=== PATIENT | female | born 1935 | race Caucasian/White ===

== ENCOUNTER 2022-04-27 15:52 | Inpatient (IN) | payer OTHER ==
[~2022-04-27] VITALS: Ht 162.6 cm; Wt 112.9 kg
[2022-04-27 15:55] VITALS: BP_SYST 124
[2022-04-27] MEDS ORDERED: VANCOMYCIN HCL 1,000 MG in NS 250 ML IV ONE (16:00)
[2022-04-27] MEDS ORDERED: PIPERACILLIN/TAZO 3.375 GM in NS 50 ML IV ONE (16:00)
--- NOTE | 2022-04-27 16:00 | NUR ---
Placed in room 7 . Placed on potline monitor, blood pressure machine and pulse oximeter. To gown for exam. Side rails up. Report given to MANUEL STEINER.
[2022-04-27] MEDS ORDERED: NACL 0.9% 1,000 ML IV ONE (16:15)
[2022-04-27] MEDS ORDERED: LOVA40TA75 PO (16:17)
[2022-04-27] MEDS ORDERED: GLIM1TAB PO (16:17)
[2022-04-27] MEDS ORDERED: ASCO500T20 PO (16:17)
[2022-04-27] MEDS ORDERED: ASPI-1155 PO (16:17)
[2022-04-27] MEDS ORDERED: CARV12.548 PO (16:17)
[2022-04-27] MEDS ORDERED: CALC-823 PO (16:17)
[2022-04-27] MEDS ORDERED: OMEG1CAP PO (16:17)
[2022-04-27] MEDS ORDERED: MULT-1089 PO (16:17)
[2022-04-27] MEDS ORDERED: SPIR25TA PO (16:17)
[2022-04-27] MEDS ORDERED: IRBE150T48 PO (16:17)
--- NOTE | 2022-04-27 16:17 | NUR ---
Medication reconciliation completed with information provided by PATIENT. Any prior medication reconciliation on file was reviewed and corrected.
[2022-04-27 16:40] LABS: BASOPHILS # (AUTO) 0.1 K/uL (0.0-0.2); BASOPHILS % (AUTO) 0.5 % (0.0-2.0); EOSINOPHILS # (AUTO) 0.2 K/uL (0.0-0.4); EOSINOPHILS % (AUTO) 1.5 % (0.0-4.0); HEMATOCRIT 26.7 % (36-48); HEMOGLOBIN 8.9 g/dL (12.0-16.0); LYMPHOCYTES # (AUTO) 1.1 K/uL (1.0-5.5); LYMPHOCYTES % (AUTO) 8.5 % (20.5-51.5); MEAN CORPUSCULAR HEMOGLOBIN 30 pg (27-31); MEAN CORPUSCULAR HGB CONC 34 % (32-36); MEAN CORPUSCULAR VOLUME 89 fL (79.0-98.0); MONOCYTES # (AUTO) 0.7 K/uL (0.0-1.0); MONOCYTES % (AUTO) 5.8 % (1.7-9.3); NEUTROPHILS # (AUTO) 10.7 K/uL (1.8-7.7); NEUTROPHILS % (AUTO) 83.7 % (40.0-70.0); PLATELET COUNT (AUTO) 263 K/uL (130-430); RED BLOOD CELL COUNT(AUTO) 3.01 MIL/uL (4.2-6.2); WHITE BLOOD COUNT (AUTO) 12.8 K/uL (4.8-10.8)
[2022-04-27] MEDS ORDERED: PIPERACILLIN/TAZOBACTAM 3.375 GM/VIAL (ZOSYN) IV ONE (16:40)
--- NOTE | 2022-04-27 16:45 | NUR ---
BIB DAUGHTER WITH C/O RLE WOUND. PT STATES WOUND HAS BEEN THERE 1 DAY BUT WOUND APPEARS CHRONIC. +PURULENT DRAINAGE, SWELLING, ERYTHEMA AND ODOR. DENIES FEVER.
[2022-04-27 16:51] LABS: ANION GAP 11 (5-15); CHLORIDE 98 mmol/L (98-107); CREATININE 3.86 mg/dL (0.55-1.30); GLUCOSE 170 mg/dL (70-99); POTASSIUM 5.2 mmol/L (3.5-5.1); SODIUM SERUM 131 mmol/L (136-145); UREA NITROGEN, BLOOD 51 mg/dL (8-21)
[2022-04-27 16:56] LABS: ALANINE AMINOTRANSFERASE 12 U/L (12-78); ALBUMIN 2.6 g/dL (3.4-4.8); ASPARTATE AMINOTRANSFERASE 19 U/L (10-37); TOTAL BILIRUBIN 0.5 mg/dL (0.0-1.0)
[2022-04-27 16:57] LABS: CALCIUM 9.9 mg/dL (8.4-11.0)
[2022-04-27] MEDS ORDERED: VANCOMYCIN HCL 1000 MG/VIAL IV ONE (17:34)
--- NOTE | 2022-04-27 18:00 | NUR ---
PER DR NICK, HOLD REMAINDEWR OF NS BOLUS DUE TO CHF. PT RECEIVED APPROX 300ML. REMAINDER DISCARDED
--- NOTE | 2022-04-27 19:23 | NUR ---
Report given to Rebeca JACKSON
[2022-04-27] MEDS ORDERED: MORPHINE 4 MG INJ. 4 MG/ML VIAL IVP ONE (19:30)
[2022-04-27] MEDS ORDERED: LORazepam 1 MG TABLET PO ONE (19:30)
--- NOTE | 2022-04-27 19:33 | NUR ---
Admit bed requested Patient will be admitted to care of . Admitted to TELEMETRY unit. Diagnosis JESUS, CHF Inpatient (Yes or No) YES Observation (Yes or No) NO Orientation concerns or request close to nursing station (Yes or No) NO Covid Status - On vent or bipap NO Isolation requirements NO Needs a sitter NO From Home (Yes or if No enter name of facility) HOME Requires Dialysis (Yes or No) NO Med Rec Completed (Yes of No) YES
--- NOTE | 2022-04-27 20:30 | NUR ---
Papient medicated for pain and discomfort, repositioned OOB to chair, at present patient is calm and stated "I feel Wonderful" now that she is OOB (aníbalrtali) to chair. Med for pain and anxiety effective. Admitted to tele unit bed 120, pending transport to unit and bedside report to specified RN. Daughter present in room.
[2022-04-27 20:48] LABS: BILIRUBIN,URINE NEGATIVE (NEGATIVE); BLOOD, URINE 3+ (NEGATIVE); CLARITY/URINE SL CLOUDY (CLEAR); COLOR,URINE YELLOW (YELLOW); GLUCOSE,URINE NEGATIVE (NEGATIVE); KETONES,URINE NEGATIVE (NEGATIVE); LEUKOCYTE ESTERASE ,URINE 3+ (NEGATIVE); NITRITE, URINE POSITIVE (NEGATIVE); PROTEIN URINE 2+ (NEGATIVE); UROBILINOGEN,URINE 0.2 (0.2-1.0)
[2022-04-27 20:54] LABS: BACTERIA,URINE MODERATE /HPF (None Seen); RBC,URINE 50-80 /HPF (0-3); WBC,URINE >100 /HPF (0-3)
[2022-04-27 20:55] LABS: MUCUS,URINE None Seen /LPF (None Seen)
--- NOTE | 2022-04-27 21:04 | NUR ---
ADMIT NOTE Received pt from ER with a diagnosis of CHF, JESUS. Admission process initiated. patient oriented to pain management, safety and call light-teach back done and she verbalized understanding. Telemetry box/leads connected, verified correct name and box number.
--- NOTE | 2022-04-27 21:05 | NUR ---
Admitted to tele unit. Patient admitted to Dr Henderson service, Room 132C Report given to ctc operator Susan. Complete and up to date summary report printed. SBAR report to be given at bedside with opportunity for questions.
[2022-04-27 21:15] VITALS: BP_SYST 119
[2022-04-27] MEDS: FUROSEMIDE 40 MG/4 ML VIAL IVP SCH (22:07)
[2022-04-27] MEDS ORDERED: PIPERACILLIN/TAZOBACTAM 2.25 GM VIAL IV ONE (23:33)
[2022-04-27] MEDS: PIPERACILLIN/TAZO 2.25G/DEX-IS 50 ML IV SCH (23:57)
[2022-04-28] VITALS: BP_SYST 122
[2022-04-28] MEDS: PIPERACILLIN/TAZO 2.25G/DEX-IS 50 ML IV SCH ×4 (05:35→23:37)
[2022-04-28 06:53] LABS: ALANINE AMINOTRANSFERASE 14 U/L (12-78); ALBUMIN 2.1 g/dL (3.4-4.8); ANION GAP 8 (5-15); ASPARTATE AMINOTRANSFERASE 14 U/L (10-37); CALCIUM 9.5 mg/dL (8.4-11.0); CHLORIDE 100 mmol/L (98-107); CREATININE 3.58 mg/dL (0.55-1.30); GLUCOSE 141 mg/dL (70-99); SODIUM SERUM 133 mmol/L (136-145); TOTAL BILIRUBIN 0.4 mg/dL (0.0-1.0); UREA NITROGEN, BLOOD 48 mg/dL (8-21)
[2022-04-28 06:56] LABS: BASOPHILS % (AUTO) 0.2 % (0.0-2.0); EOSINOPHILS # (AUTO) 0.1 K/uL (0.0-0.4); EOSINOPHILS % (AUTO) 0.6 % (0.0-4.0); HEMOGLOBIN 8.9 g/dL (12.0-16.0); LYMPHOCYTES # (AUTO) 1.1 K/uL (1.0-5.5); LYMPHOCYTES % (AUTO) 9.8 % (20.5-51.5); MEAN CORPUSCULAR HEMOGLOBIN 31 pg (27-31); MEAN CORPUSCULAR HGB CONC 34 % (32-36); MEAN CORPUSCULAR VOLUME 89 fL (79.0-98.0); MONOCYTES # (AUTO) 0.6 K/uL (0.0-1.0); MONOCYTES % (AUTO) 5.2 % (1.7-9.3); NEUTROPHILS # (AUTO) 9.1 K/uL (1.8-7.7); NEUTROPHILS % (AUTO) 84.2 % (40.0-70.0); PLATELET COUNT (AUTO) 238 K/uL (130-430); RED BLOOD CELL COUNT(AUTO) 2.91 MIL/uL (4.2-6.2); RED CELL DISTRIBUTION WIDTH 17.1 % (9.0-15.0); WHITE BLOOD COUNT (AUTO) 10.9 K/uL (4.8-10.8)
[2022-04-28 07:52] LABS: VANCOMYCIN,RANDOM 9.4 ug/mL
[2022-04-28 08:00] VITALS: BP_SYST 89
[2022-04-28] MEDS: FUROSEMIDE 40 MG/4 ML VIAL IVP SCH ×2 (09:00→20:50)
[2022-04-28 12:00] VITALS: BP_SYST 109
[2022-04-28] MEDS: VANCOMYCIN HCL 500 MG in NS 100 ML IV SCH (12:53)
[2022-04-28] MEDS ORDERED: ASPIRIN 81 MG TAB.CHEW PO ONE (13:00)
[2022-04-28 16:55] VITALS: BP_SYST 110
[2022-04-28 20:00] VITALS: BP_SYST 118
[2022-04-28] MEDS: ATORVASTATIN 10 MG TABLET PO SCH (20:50)
[2022-04-28] MEDS: CARVEDILOL 12.5 MG TABLET (COREG) PO SCH (20:51)
[2022-04-28] MEDS: TEMAZEPAM 7.5 MG CAPSULE PO SCH (22:18)
[2022-04-29] VITALS: BP_SYST 126
[2022-04-29] MEDS: GLIMEPIRIDE 2 MG TABLET PO SCH (06:46)
[2022-04-29] MEDS: PIPERACILLIN/TAZO 2.25G/DEX-IS 50 ML IV SCH ×3 (06:46→23:53)
[2022-04-29 08:24] VITALS: BP_SYST 125
[2022-04-29] MEDS: ASCORBIC ACID 500 MG TABLET PO SCH (08:36)
[2022-04-29] MEDS: CARVEDILOL 12.5 MG TABLET (COREG) PO SCH ×2 (08:37→20:32)
[2022-04-29] MEDS: ASPIRIN 81 MG TAB.CHEW PO SCH (08:37)
[2022-04-29] MEDS: MULTIVITAMINS TAB 1 TABLET PO SCH (08:37)
[2022-04-29] MEDS: SPIRONOLACTONE 25 MG TABLET (ALDACTONE) PO SCH (08:37)
[2022-04-29] MEDS: CALCIUM CARBONATE/VITAMIN D3 1 TAB TABLET PO SCH (08:38)
[2022-04-29] MEDS: LOSARTAN POTASSIUM 50 MG TABLET (COZAAR) PO SCH (08:41)
[2022-04-29] MEDS: FUROSEMIDE 40 MG/4 ML VIAL IVP SCH ×2 (08:46→20:33)
[2022-04-29] MEDS ORDERED: LOVASTATIN 20 MG TABLET PO SCH (09:00)
[2022-04-29] MEDS: VANCOMYCIN HCL 500 MG in NS 100 ML IV SCH (11:58)
[2022-04-29 12:07] VITALS: BP_SYST 104
--- NOTE | 2022-04-29 15:02 | NUR ---
WOUND EVALUATION: Late note for 04/29/2022 at 1502 secondary to patient care. Wound Consult received from Dr. Strong. Thank you, Dr. Strong, for the consult. Patient received in a [place] Bed with an Isoflex ART mattress, awake, alert, and oriented. Patient is able to turn independently. Arvind Score is a 16. Past Medical History: Chronic Lymphedema, Congestive Heart Failure, Diabetes Mellitus, Renal Failure, Morbid Obesity, Dyslipidemia, bilateral knee surgery. Patient admitted for complaint of two days of right leg phan open wound with drainage and pain. Recent Labs: WBC 10.9, RBC 2.91, hemoglobin 8.9, hematocrit 26.0, sodium 133, BUN 48, creatinine 3.58, glucose 141, TIBC 174, serum total protein 5.9, albumin 2.1. Microbiology: Blood culture results x2 in progress. Wound culture results positive for Pseudomonas aeruginosa. Urine clean-catch results positive for E. coli (ESBL). Intrinsic factors that delay wound healing: Chronic Lymphedema, Diabetes Mellitus, Renal Failure, Morbid Obesity, and Congestive Heart Failure. Extrinsic factors that delay wound healing: Decreased mobility. Wound Assessment: 1. Right Distal Lateral Lower Extremity: Venous Insufficiency Ulcer, present on admission. Wound bed has 50% dull red tissue, 40% yellow slough, 10% brown slough. No odor, scant yellow drainage. [place]-wound intact. Extremity and foot have 4+ pitting edema. Measures 11.0 cm x 6.5 cm x 0.2 cm. Recommend: Cleanse wound with normal saline. Apply SurePrep to periwound. Apply Venelex ointment to wound bed. Cover site with nonadhesive foam dressing. Apply Eucerin cream to dry scaly skin on extremity and foot. Wrap extremity and nonadhesive foam dressing with Anupam wrap from just above toes to just below knee. Wrap extremity with elastic bandage from just above toes to just below knee with 50% overlap, applying slight pressure from posterior calf area. Do not wrap too tightly (ask patient if it is too tight/uncomfortable). Perform site care daily, and as needed for dressing soiling or dislodgment. Apply Eucerin cream to toes and extremity on areas outside of dressing only on p.m. application (do not remove dressing). 2. Right Distal Anterior/Lateral/Medial Lower Extremity/Ankle: Chronic dry brown eschar, present on admission. Dry, stable. Site measures 8.5 cm x 11.0 cm. Recommend: [place] eschar sites with Betadine. Allow Betadine to air dry. Cleanse extremity and foot with mild soap and water, pat dry. Apply Eucerin cream to dry scaly skin on extremity and foot. Wrap extremity and nonadhesive foam dressing with Anupam wrap from just above toes to just below knee. Wrap extremity with same elastic bandage as in site 1 from just above toes to just below knee with 50% overlap, applying slight pressure from posterior calf area. Do not wrap too tightly (ask patient if it is too tight/uncomfortable). Perform site care daily, and as needed for dressing soiling or dislodgment. Apply Eucerin cream to toes and extremity on areas outside of dressing only on p.m. application as above (do not remove dressing). 3. Left Lower Extremity/Foot: Extremity and foot have dry scaly skin and 4+ pitting edema. Recommend: Cleanse extremity and foot with mild soap and water, pat dry. Apply Eucerin cream to dry scaly skin on extremity and foot. Wrap extremity with Anupam wrap from just above toes to just below knee. Wrap extremity with elastic bandage from just above toes to just below knee. Wrap extremity with elastic bandage from just above toes to just below knee with 50% overlap, applying slight pressure from posterior calf area. Do not wrap too tightly (ask patient if it is too tight/uncomfortable). Perform site care daily, and as needed for dressing soiling or dislodgment. Apply Eucerin cream to toes and extremity on areas outside of dressing only on p.m. application (do not remove dressing). Also recommend: Encourage and assist patient with repositioning every 2 hours with pillow support and off-load pressure areas with pillows for pressure re-distribution. Offload, elevate and float bilateral heels with pillows. Perform skin care and monitor skin integrity Q shift. Use moisture barrier cream on buttocks and other moisture susceptible areas QID and as needed for soiling. Maintain patient on a low air-loss mattress.
[2022-04-29] MEDS ORDERED: metOLazone 5 MG TABLET PO ONE (15:15)
[2022-04-29 16:22] LABS: TOTAL IRON BIND. CAPACITY 174 ug/dL (250-450)
[2022-04-29] MEDS: ALBUMIN HUMAN 25% 50 ML IV SCH ×2 (17:06→21:15)
[2022-04-29 17:32] VITALS: BP_SYST 141
--- NOTE | 2022-04-29 19:00 | NUR ---
opening received report from day nurse. pt alert awake and stable at this time sitting in chair side of bed. no c/o pain or distress at this time. skin warm to touch and clean and dry. pt has bilateral swelling extremities. educate pt to keep extremities elevated. dressing to right leg intact. 22g to left hand patent intact. call light in reach bed to lowest position.
--- NOTE | 2022-04-29 19:27 | NUR ---
all needs mets.vital sign stable, afebrile. no s/s of distress. on room air saturation good. no significant changes of condition noted. encourage to call when assistance needed. no other concerned noted.
[2022-04-29] MEDS: ATORVASTATIN 10 MG TABLET PO SCH (20:32)
[2022-04-29] MEDS: EMOLLIENT COMBINATION NO.73 78 GM CREAM..G. TP SCH (21:00)
[2022-04-29] MEDS: TEMAZEPAM 7.5 MG CAPSULE PO SCH (21:00)
[2022-04-29 21:25] VITALS: BP_SYST 122
--- NOTE | 2022-04-29 22:53 | NUR ---
pt roommate tested positive for covid. inform pt we have to change her room and do rapid covid test. pt refusing to change rooms stated she is very comfortable staying i her current room. explain to pt its very important to change rooms due to having to deep clean the room. pt stated "clean around me,shes not leaving " inform charge nurse and hull outfit supervisor.
--- NOTE | 2022-04-29 23:05 | NUR ---
call Dr Cardozo to get covid rapid test and inform dr naik has been exposed to covid. DR Cardozo gave orders..
--- NOTE | 2022-04-29 23:51 | NUR ---
pt agreed to change rooms. pt currently in room 128A
[2022-04-30] MEDS: ALBUMIN HUMAN 25% 50 ML IV SCH (03:15)
--- NOTE | 2022-04-30 07:18 | NUR ---
INFORMED NIGHT STACKER ATTENDANT LARRY THAT THE PATIENT HAS BEEN OFF THE LEADS SINCE MIDNIGHT
[2022-04-30 08:00] VITALS: BP_SYST 120
[2022-04-30] MEDS: BALSAM PERU/CASTOR OIL 56.7 GM OINT...G. TP SCH (09:00)
[2022-04-30] MEDS: EMOLLIENT COMBINATION NO.73 78 GM CREAM..G. TP SCH ×2 (09:00→21:00)
[2022-04-30] MEDS: FUROSEMIDE 40 MG/4 ML VIAL IVP SCH ×2 (10:48→22:00)
[2022-04-30] MEDS: SPIRONOLACTONE 25 MG TABLET (ALDACTONE) PO SCH (10:50)
[2022-04-30] MEDS: ASPIRIN 81 MG TAB.CHEW PO SCH (10:50)
[2022-04-30] MEDS: CARVEDILOL 12.5 MG TABLET (COREG) PO SCH ×3 (10:51→23:16)
[2022-04-30] MEDS: MULTIVITAMINS TAB 1 TABLET PO SCH (10:52)
[2022-04-30] MEDS: LOSARTAN POTASSIUM 50 MG TABLET (COZAAR) PO SCH (10:52)
[2022-04-30] MEDS: CALCIUM CARBONATE/VITAMIN D3 1 TAB TABLET PO SCH (10:53)
[2022-04-30] MEDS: ASCORBIC ACID 500 MG TABLET PO SCH (10:54)
[2022-04-30] MEDS: metOLazone 5 MG TABLET PO SCH (10:54)
[2022-04-30] MEDS: GLIMEPIRIDE 2 MG TABLET PO SCH (10:55)
[2022-04-30] MEDS: PIPERACILLIN/TAZO 2.25G/DEX-IS 50 ML IV SCH ×3 (12:00→18:00)
[2022-04-30 12:40] VITALS: BP_SYST 133
[2022-04-30] MEDS ORDERED: FURO-149 PO (13:13)
[2022-04-30] MEDS ORDERED: DOXY100T2 PO (13:15)
--- NOTE | 2022-04-30 15:21 | NUR ---
INFORMED GRATED CHEESE MAKER LAVERN THAT THE PATIENT IS OFF THE TELE MONITOR
[2022-04-30 16:30] VITALS: BP_SYST 121
--- NOTE | 2022-04-30 16:35 | NUR ---
INFORMED MANUEL COBURN FOR THE 2ND TIME THAT THE PATIENT HAS BEEN OFF THE TELE MONITOR
--- NOTE | 2022-04-30 16:45 | NUR ---
JAX JEREZ RE HOME HEALTH WOUND CARE, PER SOLITARIO, PATIENT ALREADY HAS WOUND CARE SET UP PRIOR ADMISSION AND WILL JUST CONTINUE WITH THE SAME
[2022-04-30] MEDS: VANCOMYCIN HCL 500 MG in NS 100 ML IV SCH (19:00)
--- NOTE | 2022-04-30 19:30 | NUR ---
Patient found attempting to get out of bed on her own and was very unsteady on her feet. Two people were required to help her get back into the chair.
[2022-04-30 20:00] VITALS: BP_SYST 114
--- NOTE | 2022-04-30 20:40 | NUR ---
Spoke with Dr. Mcknight who confirmed that the antibiotics the patient is scheduled to go home with are still appropriate given the patient's recent UA results. He was also informed that patient is unsteady on her feet tonight and that the patient lives alone. Dr. Mcknight said if the family is uncomfortable with it to hold the discharge and call him back.
--- NOTE | 2022-04-30 20:50 | NUR ---
Spoke with patient's daughter Deedee on the phone. She stated that she and her brother are worried about the "hallucinations" her mother has been having and that she hasn't been sleeping. She also stated that the patient lives alone and has a caregiver that comes once a week, but no one else to help her. Patient is alert to name only and continues to try to get up, stating that "that is some stranger's bed."
--- NOTE | 2022-04-30 21:20 | NUR ---
Received call from Dr. Strong. Informed him of family's concerns, and that patient is increasingly confused and unsteady on her feet and was close to falling earlier. Dr. Strong said PT saw her already and she should be discharged tonight.
[2022-04-30] MEDS: ATORVASTATIN 10 MG TABLET PO SCH ×2 (22:00→23:16)
[2022-04-30] MEDS: TEMAZEPAM 7.5 MG CAPSULE PO SCH ×2 (22:00→23:16)
--- NOTE | 2022-04-30 22:15 | NUR ---
Called daughter Deedee and let her know that she is still cleared to be discharged tonight per Dr. Strong, and she said she can come pick her up. Patient is increasingly confused and agitated, raising her voice at staff and roommate and threw a pillow at staff member. Patient's daughter came to bedside and stated it wasn't safe for her mother to go home, stating, "She'll be alone tonight. No one can be with her." She also stated that her mother is "stubborn" but that this behavior and confusion is not her baseline. Resource nurse and warehouse loader Amarilis spoke with daughter.
--- NOTE | 2022-04-30 22:38 | NUR ---
Paged Dr. Strong s/w Asha,
--- NOTE | 2022-04-30 22:42 | NUR ---
administrative nursing supervisor Amarilis spoke with on-call physician Dr. Mcknight who returned page. He was informed of patient's change of condition, increased confusion, unsteady gait, and family member's concerns. Per Dr. Mcknight, hold discharge.
--- NOTE | 2022-05-01 | NUR ---
Attempted to take patient's vitals and replace tele leads, which patient has been refusing. Patient refused and loudly stated "go away."
--- NOTE | 2022-05-01 02:25 | NUR ---
Patient continuing to attempt to stand up on own, refusing to get into bed. She is currently sitting in a chair but requires 1-2 person assist to move from bed to chair. Patient increasingly confused, talking to people not in room, saying "what have you done with the bananas? They're for the zoo. I don't know who ." Patient removed gown and refused new one, stating "if there's a gold one in there I'll shoot it." Patient also continuing to refuse tele leads.
[2022-05-01] MEDS: PIPERACILLIN/TAZO 2.25G/DEX-IS 50 ML IV SCH ×2 (06:00)
[2022-05-01] MEDS: GLIMEPIRIDE 2 MG TABLET PO SCH ×2 (07:04→09:31)
--- NOTE | 2022-05-01 07:41 | NUR ---
Patient less confused this morning and agreed to move rooms. Moved to 121A. Patient refused meds and tele leads this morning. Endorsed to day shift.
[2022-05-01 08:00] VITALS: BP_SYST 117
--- NOTE | 2022-05-01 08:00 | NUR ---
Miss gupta has been assessed as indicated. She denies pain. She is up to a chair. She has been seen by PT and was able to use stand by assist to ambulate short distances with a walker. She is resting quietly at this time
[2022-05-01] MEDS ORDERED: FOSF3PAC4 PO ×2 (08:36→08:54)
[2022-05-01] MEDS: FUROSEMIDE 40 MG/4 ML VIAL IVP SCH ×2 (09:00→09:27)
[2022-05-01] MEDS: MULTIVITAMINS TAB 1 TABLET PO SCH (09:24)
[2022-05-01] MEDS: LOSARTAN POTASSIUM 50 MG TABLET (COZAAR) PO SCH (09:24)
[2022-05-01] MEDS: CALCIUM CARBONATE/VITAMIN D3 1 TAB TABLET PO SCH (09:25)
[2022-05-01] MEDS: ASCORBIC ACID 500 MG TABLET PO SCH (09:25)
[2022-05-01] MEDS: SPIRONOLACTONE 25 MG TABLET (ALDACTONE) PO SCH (09:25)
[2022-05-01] MEDS: CIPROFLOXACIN HCL 500 MG TABLET PO SCH ×2 (09:25→09:39)
[2022-05-01] MEDS: ASPIRIN 81 MG TAB.CHEW PO SCH (09:25)
[2022-05-01] MEDS: CARVEDILOL 12.5 MG TABLET (COREG) PO SCH (09:26)
[2022-05-01] MEDS: metOLazone 5 MG TABLET PO SCH (09:26)
[2022-05-01] MEDS: BALSAM PERU/CASTOR OIL 56.7 GM OINT...G. TP SCH (09:27)
[2022-05-01] MEDS: EMOLLIENT COMBINATION NO.73 78 GM CREAM..G. TP SCH (09:27)
--- NOTE | 2022-05-01 10:17 | NUR ---
This manual writer spoke with micehlle with case management. She states miss Garcia will have home health care upon DC. This manual writer reached out to her son Constantino at [phone] to see if a continuous pickling line pickler time could be arranged. Per off going shift. He would be available this morning and her daughter, a school program director would be available after 1530. There was no answer a message was left
--- NOTE | 2022-05-01 10:25 | NUR ---
Son Constantino calls back he states that his sister Christel will come to pick Miss Garcia up at 1530. He states that his vehicle is too large for his mother to ride in.
[2022-05-01 12:37] VITALS: BP_SYST 117
--- NOTE | 2022-05-01 13:40 | NUR ---
[employer] ENGINEER SPECIALIST called and spoke to pts. daughter Deedee Ellison who stated she cant talk too long because she is in class. Deedee stated pt will be picked up and will continue to live home alone by choice. Pt. will have HH and a home caregiver check in on her tomorrow. Afterwards, Deedee and her brother will be checking in on their mom. ENGINEER SPECIALIST thanked her for her input. ENGINEER SPECIALIST will remain available.
--- NOTE | 2022-05-01 14:49 | NUR ---
Discharge appointments and vendors arranged by [employer] Vandana Vera [phone] [facility] Date and Time: 05/08/2022 01:00 PM [facility] [phone] auth# [id number] Home health for caution fluids and resume wound care /dressing changes Agency will call and schedule visit. Please call Patient Support Center [phone] for worsening symptoms or trouble getting your medicine. For care needs when provider office is closed, contact Dalia [facility] at [phone] or Darshan [facility] [phone].
--- NOTE | 2022-05-01 14:55 | NUR ---
Discharge Planning/Wound Care Instructions: Wound Care Instructions as ordered from Dr. Strong: 1. Right Distal Lateral Lower Extremity: Venous Insufficiency Ulcer, present on admission. Wound bed has 50% dull red tissue, 40% yellow slough, 10% brown slough. No odor, scant yellow drainage. Rivka-wound intact. Extremity and foot have 4+ pitting edema. Cleanse wound with normal saline. Apply SurePrep to periwound. Apply Venelex ointment to wound bed. Cover site with nonadhesive foam dressing. Apply Eucerin cream to dry scaly skin on extremity and foot. Wrap extremity and nonadhesive foam dressing with Anupam wrap from just above toes to just below knee. Wrap extremity with elastic bandage from just above toes to just below knee with 50% overlap, applying slight pressure from posterior calf area. Do not wrap too tightly (ask patient if it is too tight/uncomfortable). Perform site care daily, and as needed for dressing soiling or dislodgment. Apply Eucerin cream to toes and extremity on areas outside of dressing only on p.m. application (do not remove dressing). 2. Right Distal Anterior/Lateral/Medial Lower Extremity/Ankle: Chronic dry brown eschar, present on admission. Dry, stable. [place] eschar sites with Betadine. Allow Betadine to air dry. Cleanse extremity and foot with mild soap and water, pat dry. Apply Eucerin cream to dry scaly skin on extremity and foot. Wrap extremity and nonadhesive foam dressing with Anupam wrap from just above toes to just below knee. Wrap extremity with same elastic bandage as in site 1 from just above toes to just below knee with 50% overlap, applying slight pressure from posterior calf area. Do not wrap too tightly (ask patient if it is too tight/uncomfortable). Perform site care daily, and as needed for dressing soiling or dislodgment. Apply Eucerin cream to toes and extremity on areas outside of dressing only on p.m. application as above (do not remove dressing). 3. Left Lower Extremity/Foot: Extremity and foot have dry scaly skin and 4+ pitting edema. Cleanse extremity and foot with mild soap and water, pat dry. Apply Eucerin cream to dry scaly skin on extremity and foot. Wrap extremity with Anupam wrap from just above toes to just below knee. Wrap extremity with elastic bandage from just above toes to just below knee. Wrap extremity with elastic bandage from just above toes to just below knee with 50% overlap, applying slight pressure from posterior calf area. Do not wrap too tightly (ask patient if it is too tight/uncomfortable). Perform site care daily, and as needed for dressing soiling or dislodgment. Apply Eucerin cream to toes and extremity on areas outside of dressing only on p.m. application (do not remove dressing).
--- NOTE | 2022-05-01 15:59 | NUR ---
discuss discharge with patient sandra Margaux, informed her SSW will be calling to discuss goals of care buttermaker continuous churn and resources for fdc care. margaux did indicate that caregiver will be there tomorrow and hours will be increasing to 4 days a week
--- NOTE | 2022-05-01 16:49 | NUR ---
Miss Garcia has beend DC to home. No IV access was in place. Heart monitor had been refused. She was assisted to dress by staff. DC instructions were reviewed with her daughter. She expressed that she understood them and signed a document to indicate this. Her daughter Christel picked her up and she was driven away in a private vehicle. At the time of DC Miss Garcia had no s/s of distress or discomfort and was compliant with the plan to DC home.
--- NOTE | 2022-05-01 19:30 | NUR ---
This com writer received a call from Monica's daughter Christel. She states that the [place] pharmacy has stated one of the called RX cannot be filled. This com writer contacted the [facility] pharmacy ib question. Pharmacy states that the ordered antibiotic is not covered. and the out of pocket cost would be $645 for the ordered doses. The pharmacist on duty was made aware of the ESBL in urine diagnosis and suggested he searched for compatible meds and suggested Bactrim DC 1 tab PO BID x3days. Christel was made aware of this. She stated her mother would not want to pay that much. There has been a call placed to the public information officer MD to request a new order be called to the pharmacy
--- NOTE | 2022-05-01 20:44 | NUR ---
the need for medication clarification has been passed on to charge and relief nurses of the current shift. [facility] pharmacy pharmacist Romelia was made aware of urine culture susceptibilities and the patient's allergies. she suggested Augmentin PO. This will be conveyed to the cash reconciliation specialist physician for clarification. A voicemail was left for her daughter Christel that staff was still working toward a resolution for the antibiotic in question. Khadra daughter [phone] [facility] [phone]
[2022-05-01] MEDS ORDERED: TEMAZEPAM 15 MG CAPSULE PO SCH (21:00)
--- NOTE | 2022-05-20 14:58 | NUR ---
Language Specialist BROOM BUILDER made a Post Discharge Follow-Up Phone Call and spoke to former pt. Monica who stated she is receiving HH with [facility], 3 days a week for 3 weeks and she has one week of care left. Re. a follow up with her PCP, Monica stated she has spoken to the Rn in the PCP's office and does not feel Monica needs to come in for an apt. with PCP. Pt did not have any questions or concerns, but will contact her PCP if she does.
== END 2022-05-01 16:40 | disposition home health service (06) | DRG 602 ==
LOC: SED 15:52 → STU 18:02 → SMU 05-01 13:29
PROVIDERS: ADMIT Internal Medicine; ATTEND Internal Medicine
DX: L03.115 Cellulitis of right lower limb (principal); E43 Unspecified severe protein-calorie malnutrition; N17.9 Acute kidney failure, unspecified; N18.4 Chronic kidney disease, stage 4 (severe); E87.70 Fluid overload, unspecified; Z20.822 Contact with and (suspected) exposure to COVID-19; Z96.651 Presence of right artificial knee joint; Z96.641 Presence of right artificial hip joint; I89.0 Lymphedema, not elsewhere classified; Z88.2 Allergy status to sulfonamides; Z79.899 Other long term (current) drug therapy; Z88.8 Allergy status to other drugs, medicaments and biological substances; Z90.710 Acquired absence of both cervix and uterus; Z98.42 Cataract extraction status, left eye; Z98.41 Cataract extraction status, right eye
CPT/HCPCS: 36415; 80053; 80202; 81000; 82962; 83540; 83550; 83605; 85025; 87040; 87070-TC; 87086; 87186-TC; 96361; 96365; 96375; 97116-GP; 97530-GP; 99285; G0378; J1940; J2270; J2543; J3370; P9046